=== PATIENT | male | born 1960 | race Caucasian/White ===

== ENCOUNTER 2018-07-21 05:39 | Emergency (ER) | payer OTHER, SELFPAY ==
[2018-07-21 05:50] VITALS: BP 164/93; PULSE 75; RESP 16; TEMP 37.1; O2SAT 99; BMI 26.3
--- NOTE | 2018-07-21 05:50 | ED_ITS ---
HPI - General Adult General Chief complaint: Nausea/Vomiting/Diarrhea Stated complaint: vomiting since wednesday Time Seen by Provider: 07/21/18 05:47 Source: patient Mode of arrival: ambulatory Limitations: no limitations History of Present Illness HPI narrative: Patient is a 57-year-old male here for evaluation of vomiting. He states it has been going on for the past several days. He states this happens when he takes anti-inflammatories and has been taking them for hip and back pain. He states that this has happened in the past. 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 He did take some of these over the past couple days without any improvement of his symptoms. He has no nausea medication at home. No fevers. He Related Data Previous Rx's Medication Instructions Recorded ondansetron HCl [Zofran] 4 mg PO Q6-8H PRN #14 tab 07/21/18 Allergies Allergy/AdvReac Type Severity Reaction Status Date / Time No Known Drug Allergies Allergy Verified 07/21/18 05:50 Review of Systems Constitutional Denies fever(s) and Denies headache(s) ENT Ears, Nose, Mouth, and Throat: Denies headache(s) Cardiovascular Denies chest pain and Denies dyspnea Respiratory Denies dyspnea Gastrointestinal Gastrointestinal: Reports abdominal pain, Denies change in stool character, Reports nausea and Reports vomiting Integumentary/Breasts Denies rash Neurologic Denies headache(s) Hematologic/Lymphatic Denies easy bleeding and Denies easy bruising [facility] Medical History Healthy adult (Acute) Social History Smoking Status: Never smoker Social History Smoking Status: Never smoker Exam Initial Vital Signs Initial Vital Signs: Vital Signs Temperature 98.8 F 07/21/18 05:50 Pulse Rate 75 07/21/18 05:50 Respiratory Rate 16 07/21/18 05:50 Blood Pressure 164/93 H 07/21/18 05:50 Pulse Oximetry 99 07/21/18 05:50 Const General: cooperative, healthy appearing, comfortable, well developed and well groomed Orientation: alert, awake and oriented x3 Resp Effort & Inspection: normal respiratory effort Auscultation: clear to auscultation bilaterally Cardio Rate: regular rate Rhythm: regular rhythm GI Inspection: non-distended Palpation: soft, No firm and tender (Epigastric area) Skin Lesions: no lesions Rashes: no rashes Neuro General: alert, awake and oriented x3 Cognition: normal cognition Extrem General: normal to inspection and capillary refill normal Course Orders Ordered: Discontinued Medications Ondansetron HCl (Zofran Odt) 4 mg SL NOW ONE Stop: 07/21/18 05:51 Last Admin: 07/21/18 05:58 Dose: Not Given Ondansetron HCl (Zofran Odt Prepack) 1 bottle MISC SEEINSTR ONE Stop: 07/21/18 05:57 Last Admin: 07/21/18 05:57 Dose: 1 bottle Vital Signs - 8 hr 07/21/18 05:50 Temperature 98.8 F Pulse Rate 75 Respiratory Rate 16 Blood Pressure 164/93 H Pulse Oximetry 99 Medical Decision Making MDM Narrative Medical decision making narrative: Patient states he feels much better after the Zofran. He is tolerating oral intake. We did discuss the importance of taking a reflux medication given the fact that he has a history of early Guallpa's and taking anti-inflammatories and all the vomiting he has been having. [place] ent expressed understanding and agreement this plan. Discharge Plan Departure Patient Disposition: Home Clinical Impression: Vomiting Qualifiers: Vomiting type: unspecified Vomiting Intractability: non-intractable Nausea presence: with nausea Qualified Code(s): R11.2 - Nausea with vomiting, unspecified Instructions: Nausea (Alternative Therapy), DI for Nausea -- Adult, DI for Vomiting -- Adult Activity Restrictions/Additional Instructions: I do recommend you start taking the Prilosec likely discussed. Take the Zofran as needed for nausea. Recommend a bland diet for the next day or so. You then can increase it is needed. Return to the emergency department for any new or worsening symptoms. Contact your primary care doctor for follow-up. Prescriptions: New ondansetron HCl [Zofran] 4 mg tablet 4 mg PO Q6-8H PRN (Reason: nausea and vomiting) Qty: 14 RF: 0
[2018-07-21] MEDS: ONDANSETRON 4 MG ODT PREPACK 1 BOTTLE MISC (05:57)
[2018-07-21 06:35] VITALS: BP 160/86; PULSE 59; RESP 16; O2SAT 98
== END 2018-07-21 06:35 | disposition home or self-care (01) ==
PROVIDERS: Emergency Provider Emergency Medicine
DX: R11.2 Nausea with vomiting, unspecified (principal)
CPT/HCPCS: 99282; 99283

== ENCOUNTER 2019-07-26 16:28 | Emergency (ER) | payer OTHER, SELFPAY ==
[2019-07-26 16:34] VITALS: BP 140/84; PULSE 92; RESP 19; TEMP 36.8; O2SAT 100; BMI 27.7
[2019-07-26 16:36] VITALS: BP 140/84; PULSE 88; RESP 14; TEMP 36.8; O2SAT 95
--- NOTE | 2019-07-26 16:36 | ED_ITS ---
HPI - Wound/Laceration <MARCELION Alcantara - Last Filed: 07/26/19 17:41> General Chief Complaint: Wound/Laceration Stated Complaint: laceration to right hand/thumb Time Seen by Provider: 07/26/19 16:36 Source: patient Mode of arrival: Ambulatory Limitations: no limitations History of Present Illness HPI narrative: This is a 58-year-old male, nonsmoker, who presents to ED with chief complain of laceration on dorsal aspect of base of right thumb by a chain saw 30 minutes before coming into ED at 4:00 p.m. Patient reports the chainsaw got stuck on a branch and he was attempting to clear this when he injured the thumb accidentally. The patient reports right dominant hand and had Td updated 6 months ago before traveling to [facility]. Patient reports he is able to move his thumb and has intact sensation. He denies taking anticoagulants or antiplatelets. Related Data Previous Rx's Medication Instructions Recorded ondansetron HCl [Zofran] 4 mg PO Q6-8H PRN #14 tab 07/21/18 Allergies Allergy/AdvReac Type Severity Reaction Status Date / Time No Known Drug Allergies Allergy Verified 07/21/18 05:50 Review of Systems <MARCELINO Alcantara - Last Filed: 07/26/19 17:41> Review of Systems Narrative: General: Denies fever, chills, fatigue, malaise, sweats. HEENT: Denies sinus pain, ear pain, sore throat, difficulty swallowing, dizziness. Respiratory: Denies dyspnea, cough, wheezing, hemoptysis, sputum. Cardiovascular: Denies chest pain, palpitations, orthopnea, edema. Gastrointestinal: Denies nausea, vomiting, abdominal pain, diarrhea, constipation, melena. : Denies dysuria, frequency, incontinence, hematuria, urinary retention. Musculoskeletal: See HPI Skin: HPI Neurologic: Denies weakness, headache, numbness, change in speech, confusion, seizures, incoordination. Psychiatric: No concerning psychosocial issues. 12-point review of systems is negative except for those stated above. Patient History <MARCELINO Alcantara - Last Filed: 07/26/19 17:41> Medical History GI bleed (Acute) Splenomegaly (Acute) Surgical History H/O eye surgery (Acute) H/O hemicolectomy (Acute) Social History Smoking Status: Never smoker Smoking Status: Never smoker alcohol intake frequency: 0-2 drinks per day Substance Use Type: does not use Exam <MARCELINO Alcantara - Last Filed: 07/26/19 17:41> Narrative Exam Narrative: General appearance: well developed, well nourished, in no acute distress. Head: normocephalic, atraumatic, no scalp lesions, non-tender. ENT: Hearing grossly intact. Nose without bleeding, purulent discharge. Mucous membrane moist, no mucosal lesion. Throat without erythema, tonsillar hypertrophy or exudate. Uvula in midline, airway patent. Neck/Thyroid: neck supple, full range of motion, no visible masses or meningeal signs. No JVD, non-tender without lymphadenopathy. Skin: 4 cm linear transverse laceration in dorsal aspect right thumb metacarpal without active bleeding. No suspicious rashes, lesions over other visible areas. Warm and dry and appropriate color for ethnicity. Heart: no clubbing, no cyanosis, no edema. S1 and S2 normal. RRR w/o murmurs, clicks, or bruits. Lungs: Breathing even and unlabored. No stridor. No accessory muscles used. Able to speak in full sentences. Chest: normal shape and expansion. Abdomen: non-obese, non-distended. Neurologic: alert and oriented. Cognitive exam, [employer] and PNS grossly intact on informal exam. Psych: good eye contact, normal affect. Initial Vital Signs Initial Vital Signs: Vital Signs Temperature 98.3 F 07/26/19 16:34 Pulse Rate 92 H 07/26/19 16:34 Respiratory Rate 19 07/26/19 16:34 Blood Pressure 140/84 07/26/19 16:34 Pulse Oximetry 100 07/26/19 16:34 Extrem Right upper extremity: hand Details: abnormal to inspection, normal capillary refill, neuromotor exam normal, neurosensory exam normal, tendon exam normal (Patient is able to flex and extend right thumb), tenderness Location: of the dorsal hand (Thumb) and vascular exam Details: radial pulse present and normal capillary refill <Aracelis North MD - Last Filed: 07/27/19 07:17> Initial Vital Signs Initial Vital Signs: Vital Signs Temperature 98.3 F 07/26/19 16:34 Pulse Rate 92 H 07/26/19 16:34 Respiratory Rate 19 07/26/19 16:34 Blood Pressure 140/84 07/26/19 16:34 Pulse Oximetry 100 07/26/19 16:34 Procedures <MARCELINO Alcantara - Last Filed: 07/26/19 17:41> Laceration Repair Laceration 1: Site: hand (dorsal aspect, metacarpal of thumb) Side (If applicable): right Size (cm): 4 Description: linear Depth: simple, single layer Local Anesthetic: lidocaine 1% and with bicarb Amount of anesthesia used (mL): 3 Pre-repair: wound explored and irrigated extensively Skin layer closed with: nylon Size (cm): 5-0 Number of sutures: 5 Technique: simple, interrupted Scores <MARCELINO Alcantara - Last Filed: 07/26/19 17:41> GCS Dillon coma scale eye opening: Spontaneous Sturtevant coma scale verbal response: Orientated Sturtevant coma scale motor response: Obey commands Dillon coma scale total score: 15 Course <MARCELINO Alcantara - Last Filed: 07/26/19 17:41> Orders Ordered: Discontinued Medications Bacitracin (Bacitracin) 1 applic TOP NOW ONE Stop: 07/26/19 16:42 Last Admin: 07/26/19 16:46 Dose: 1 applic Documented by: LG Lidocaine/Sodium Bicarbonate (Buffered Lidocaine 10 Ml Syr) 10 ml INJ NOW ONE Stop: 07/26/19 16:42 Last Admin: 07/26/19 16:45 Dose: 10 ml Documented by: LG Vital Signs Vital signs: Vital Signs - 8 hr 07/26/19 16:34 07/26/19 16:36 Temperature 98.3 F 98.3 F Pulse Rate 92 H 88 Respiratory Rate 19 14 Blood Pressure 140/84 Blood Pressure [Right Arm] 140/84 Pulse Oximetry 100 95 <Aracelis North MD - Last Filed: 07/27/19 07:17> Orders Ordered: Discontinued Medications Bacitracin (Bacitracin) 1 applic TOP NOW ONE Stop: 07/26/19 16:42 Last Admin: 07/26/19 16:46 Dose: 1 applic Documented by: LG Lidocaine/Sodium Bicarbonate (Buffered Lidocaine 10 Ml Syr) 10 ml INJ NOW ONE Stop: 07/26/19 16:42 Last Admin: 07/26/19 16:45 Dose: 10 ml Documented by: LG Vital Signs Vital signs: Vital Signs - 8 hr 07/26/19 16:34 07/26/19 16:36 Temperature 98.3 F 98.3 F Pulse Rate 92 H 88 Respiratory Rate 19 14 Blood Pressure 140/84 Blood Pressure [Right Arm] 140/84 Pulse Oximetry 100 95 MDM - Wound/Laceration <MARCELINO Alcantara - Last Filed: 07/26/19 17:41> Differential Diagnosis Differential diagnosis: Likely laceration Medical Records Attestation: I reviewed the patient's medical records. Imaging Data XR-Finger RT: Radiologist's Impression: [address] [address] XRay Report Signed Patient: Jac Morris JMR#: [id number] : 1960Acct:[id number] Age/Sex: 58 / MDate of Service: 07/26/19 Loc: ED Accession Number: [id number] Procedure: XR finger RT min 2V Ordering Provider: Giovani Jacobs PROCEDURE: XR FINGER RT MIN 2V INDICATIONS: Right Thumb metacarpal injury in dorsal aspect, chainsaw TECHNIQUE: AP hand, 2 views of the right finger(s) acquired. COMPARISON: None. FINDINGS: Bones: No fractures or dislocations. No suspicious bony lesions. First CMC and triscaphe joint degeneration Soft tissue laceration and swelling at the base of the thumb. Possible chronic occult osteophytes seen at the second and third metacarpal heads IMPRESSION: Soft tissue laceration and swelling. No fracture identified. No radiopaque foreign body seen. Incidentally noted chronic hooklike osteophytes at the second and third me tacarpal heads raises the possibility of deposition arthropathy Dictated by: Barrera Minor M.D. on 07/26/2019 at 16:54 Approved by: Barrera Minor M.D. on 07/26/2019 at 16:57 [facility] Narrative Medical decision making narrative: This is a 58-year-old male who presents to ED with right dorsal aspect laceration from a chain saw. Patient has intact sensation and is able to flex and extend affected finger without difficulty. X- ray test does not show fracture, dislocation or foreign body. Laceration has been repaired with sutures. Please see procedure note. I discussed wound care at home and return precautions and patient verbalized understanding and in agreement with treatment plan. Discharge Plan Departure Patient Disposition: Home Clinical Impression: Laceration Discharge Date/Time: 07/26/19 17:35 Instructions: DI for Laceration Repair Activity Restrictions/Additional Instructions: You have been diagnosed with [right base of thumb in dorsal aspect laceration from a chain saw. There is no dislocation, fracture or foreign body appreciated per x-ray test today. 4 cm laceration has been repaired with 5 sutures.]. What to do: *Take your medications as directed. You can use [id number] Neosporin on affected site. Please do not get your wound soaked in the water until suture removal. Keep your dressing intact for next 24 hrs. After then, you could remove your dressing, wash with soap and water. Pat dry with clean paper towel and dress it with antibiotic ointment. You can change dressing as needed and daily. Please monitor for signs and symptoms for infection such as increasing redness, swelling, warmth, pain, fever, purulent discharge. If this occurs, please return to ED or follow up with your primary care physician since your wound may be gotten infected. Please follow up with your primary care provider in 2-3 days for recheck wound. Your suture should be removed [7-10 ] days. This can be done by your primary provider, walk-in clinic or here in ED. Please keep your wound clean, dry and intact all times. *Return to ED if you have any new, worsening, or concerning symptoms, such as signs of infection as above. Prescriptions: No Action ondansetron HCl [Zofran] 4 mg tablet 4 mg PO Q6-8H PRN (Reason: nausea and vomiting) Qty: 14 RF: 0
--- NOTE | 2019-07-26 16:41 | DI.RAD.S_ITS ---
PROCEDURE: XR FINGER RT MIN 2V INDICATIONS: Right Thumb metacarpal injury in dorsal aspect, chainsaw TECHNIQUE: AP hand, 2 views of the right finger(s) acquired. COMPARISON: None. FINDINGS: Bones: No fractures or dislocations. No suspicious bony lesions. First CMC and triscaphe joint degeneration Soft tissue laceration and swelling at the base of the thumb. Possible chronic occult osteophytes seen at the second and third metacarpal heads IMPRESSION: Soft tissue laceration and swelling. No fracture identified. No radiopaque foreign body seen. Incidentally noted chronic hooklike osteophytes at the second and third metacarpal heads raises the possibility of deposition arthropathy Dictated by: Barrera Minor M.D. on 07/26/2019 at 16:54 Approved by: Barrera Minor M.D. on 07/26/2019 at 16:57
[2019-07-26] MEDS: LIDO 1%/SOD BICARB 8.4% (10ML) 10 ML SYRINGE INJ (16:45)
[2019-07-26] MEDS: BACITRACIN OINT 0.9 GM PCKT 1 APPLIC TOP (16:46)
[2019-07-26 17:33] VITALS: BP 137/85; PULSE 75; RESP 14; O2SAT 98
== END 2019-07-26 17:35 | disposition home or self-care (01) ==
PROVIDERS: Emergency Provider Nurse Practitioner Family
DX: S61.011A Laceration without foreign body of right thumb without damage to nail, initial encounter (principal); W29.3XXA Contact with powered garden and outdoor hand tools and machinery, initial encounter
CPT/HCPCS: 12002; 73140; 99283

== ENCOUNTER 2021-05-01 14:55 | Emergency (ER) | payer OTHER, SELFPAY ==
[2021-05-01 15:39] VITALS: BP 117/74; PULSE 57; RESP 15; TEMP 36.3; O2SAT 95; BMI 29.0
--- NOTE | 2021-05-01 15:43 | DI.RAD.S_ITS ---
PROCEDURE: XR SHOULDER RT MIN 2V INDICATIONS: fall with right upper arm and shoulder pain TECHNIQUE: 2 views of the shoulder were acquired. COMPARISON: None. FINDINGS: Bones: No fractures or dislocations. No suspicious bony lesions. Visualized ribs appear intact. Periarticular osteophyte formation at the acromioclavicular and glenohumeral joints, indicating osteoarthritis. Soft tissues: Calcifications project over the rotator cuff. IMPRESSION: 1. Osteoarthritis. 2. Calcific tendinitis. Dictated by: Jesse Barba M.D. on 05/01/2021 at 16:21 Approved by: Jesse Barba M.D. on 05/01/2021 at 16:22
--- NOTE | 2021-05-01 15:43 | DI.RAD.S_ITS ---
PROCEDURE: XR HUMERUS RT 2V INDICATIONS: fall with right upper arm and shoulder pain TECHNIQUE: 2 views of the humerus were acquired. COMPARISON: None. FINDINGS: Bones: No fractures or dislocations. No suspicious bony lesions. Soft tissues: No suspicious soft tissue calcifications. IMPRESSION: No acute fracture. No osseous lesion. If symptoms and/or clinical suspicion for pathology persist, further assessment with repeat, or advanced imaging (e.g., CT, MRI, or bone scan) may be helpful for further assessment. Dictated by: Jesse Barba M.D. on 05/01/2021 at 16:22 Approved by: Jesse Barba M.D. on 05/01/2021 at 16:23
--- NOTE | 2021-05-01 18:35 | ED.FALL ---
HPI - Fall <MARCELINO Munoz - Last Filed: 05/01/21 19:23> General Chief Complaint: Fall Stated Complaint: fall, rt shoulder and neck pain Time Seen by Provider: 05/01/21 18:35 Source: patient Mode of arrival: Ambulatory History of Present Illness HPI Narrative: 60-year-old male presents to the emergency department for right shoulder pain after he slipped and fell this morning without hitting his head and he does not take any blood thinners. Patient complains of pain with abduction and extension. Patient denies pain with his arm behind his back, is or straight down at his side, complains of a little bit of pain when his arm is hanging. Patient denies taking any medications for this today. He denies any numbness or tingling in his fingers, denies having any open wounds, range of motion is only limited due to pain. Related Data Previous Rx's Medication Instructions Recorded ondansetron HCl 4 mg tablet 4 mg PO Q6-8H PRN #14 tab 07/21/18 (Zofran) methocarbamol 500 mg tablet 500 mg PO Q8H PRN #14 tab 05/01/21 Allergies Allergy/AdvReac Type Severity Reaction Status Date / Time No Known Drug Allergies Allergy Verified 05/01/21 15:38 Review of Systems <MARCELINO Munoz - Last Filed: 05/01/21 19:23> Review of Systems Narrative: General: denies fever, chills Head/Neck: denies headache, neck pain Eyes: denies visual changes, eye pain Cardio: denies chest pain, palpitations Respiratory: denies shortness of breath, cough GI: denies abdominal pain : denies dysuria, hematuria MSK: denies joint pain, muscle weakness Skin: denies rash, itching Neuro: denies numbness, tingling Patient History <MARCELINO Munoz - Last Filed: 05/01/21 19:23> Medical History GI bleed Splenomegaly Surgical History H/O eye surgery H/O hemicolectomy Social History Smoking Status: Never smoker Smoking Status: Never smoker alcohol intake frequency: a few times a week Substance Use Type: does not use Exam <MARCELINO Munoz - Last Filed: 05/01/21 19:23> Narrative Exam Narrative: Independently reviewed vitals signs and nursing notes. General: Awake, alert, nontoxic, no cardiorespiratory distress Head/Neck: Atraumatic, neck full range of motion Eyes: EOMI, conjunctiva normal Nose: nares patent, no rhinorrhea Mouth/Throat: moist mucus membranes Cardio: Regular rate and rhythm, no peripheral edema Respiratory: respirations unlabored without wheezing, stridor, or rales. No retractions. MSK: Moves all extremities, neurovascularly intact, right arm with 2+ pulses radially, pain exacerbated with abduction and extension, patient complains of pain from the acromion process down the lateral aspect of his deltoid without any further radiation. He reports that it feels better at rest. Range of motion limited due to pain. Skin: Normal capillary refill, no rash Neuro: Normal speech and cognition, normal gait Initial Vital Signs Initial Vital Signs: Vital Signs Temperature 97.3 F L 05/01/21 15:39 Pulse Rate 57 L 05/01/21 15:39 Respiratory Rate 15 05/01/21 15:39 Blood Pressure 117/74 05/01/21 15:39 Pulse Oximetry 95 05/01/21 15:39 <Erendira Denny DO - Last Filed: 05/02/21 03:31> Initial Vital Signs Initial Vital Signs: Vital Signs Temperature 97.3 F L 05/01/21 15:39 Pulse Rate 57 L 05/01/21 15:39 Respiratory Rate 15 05/01/21 15:39 Blood Pressure 117/74 05/01/21 15:39 Pulse Oximetry 95 05/01/21 15:39 Course <MARCELINO Munoz - Last Filed: 05/01/21 19:23> Orders Ordered: Discontinued Medications Ketorolac Tromethamine (Ketorolac 30 Mg/Ml Vial) 30 mg IM NOW ONE Stop: 05/01/21 18:43 Last Admin: 05/01/21 18:45 Dose: 30 mg Documented by: JAMAR Vital Signs Vital signs: Vital Signs - 8 hr 05/01/21 19:34 Pulse Rate 80 Respiratory Rate 18 Blood Pressure 140/91 H Pulse Oximetry 97 <Erendira Denny DO - Last Filed: 05/02/21 03:31> Orders Ordered: Discontinued Medications Ketorolac Tromethamine (Ketorolac 30 Mg/Ml Vial) 30 mg IM NOW ONE Stop: 05/01/21 18:43 Last Admin: 05/01/21 18:45 Dose: 30 mg Documented by: KBROTEM Vital Signs Vital signs: Vital Signs - 8 hr 05/01/21 19:34 Pulse Rate 80 Respiratory Rate 18 Blood Pressure 140/91 H Pulse Oximetry 97 MDM - Fall <NAHEED MunozP - Last Filed: 05/01/21 19:23> Imaging Data Extremity x-ray #1: Radiologist's Impression: PROCEDURE:? XR HUMERUS RT 2V ? INDICATIONS:? fall with right upper arm and shoulder pain ? TECHNIQUE:? 2 views of the humerus were acquired.? ? COMPARISON:? None. ? FINDINGS:? ? Bones:? No fractures or dislocations.? No suspicious bony lesions.? ? Soft tissues:? No suspicious soft tissue calcifications.? ? IMPRESSION:? No acute fracture. No osseous lesion. If symptoms and/or clinical suspicion for pathology persist, further assessment with repeat, or advanced imaging (e.g., CT, MRI, or bone scan) may be helpful for further assessment. ? ? Dictated by: Jesse Barba M.D. on 05/01/2021 at 16:22 ? ? Approved by: Jesse Barba M.D. on 05/01/2021 at 16:23 ? Extremity x-ray #2: Radiologist's Impression: PROCEDURE:? XR SHOULDER RT MIN 2V ? INDICATIONS:? fall with right upper arm and shoulder pain ? TECHNIQUE:? 2 views of the shoulder were acquired.? ? COMPARISON:? None. ? FINDINGS:? ? Bones:? No fractures or dislocations.? No suspicious bony lesions.? Visualized ribs appear intact.? Periarticular osteophyte formation at the acromioclavicular and glenohumeral joints, indicating osteoarthritis. ? Soft tissues:? Calcifications project over the rotator cuff. ? IMPRESSION:? 1. Osteoarthritis. 2. Calcific tendinitis. ? ? Dictated by: Jesse Barba M.D. on 05/01/2021 at 16:21 ? ? Approved by: Jesse Barba M.D. on 05/01/2021 at 16:22 ? [facility] Narrative Medical decision making narrative: 60-year-old male presents to the emergency department for right shoulder pain after slipping and falling this morning. Right shoulder and right humerus x-rays were negative for causes abnormality, joint effusion, or other acute abnormal process. Patient was fitted in a sling, given Toradol and muscle relaxers the reports that it feels better in a sling. He will follow-up with his primary care provider for physical therapy, if this is unsuccessful he will follow-up with orthopedics for a possible rotator cuff injury. Patient is appropriate and amenable to discharge home. Vital signs are stable on repeat examination is unremarkable. Patient has been informed of results. Patient has been given strict return to ER precautions for any new or worsening symptoms. Patient understands to follow up closely with outpatient providers as instructed. Patient understands plan and agrees to discharge home. All questions and concerns answered at this time. Discharge Plan Departure Patient Disposition: Home Clinical Impression: Sprain of right shoulder Qualifiers: Encounter type: initial encounter Shoulder sprain type: unspecified sprain Qualified Code(s): S43.401A - Unspecified sprain of right shoulder joint, initial encounter Instructions: DI for Shoulder Sprain, DI for Shoulder Pain Activity Restrictions/Additional Instructions: *You have been diagnosed with a right shoulder injury, most likely a sprain, but could be a rotator cuff injury. Please follow-up with your primary care provider to get a referral for physical therapy. Please wear the sling most of the time all your out of bed and walking around, it may help with the hanging pain. Please take it out of the sling and do gentle range of motion multiple times a day so you do not get a frozen shoulder. Please take anti-inflammatories like Aleve, Advil, ibuprofen, or Motrin every 6 hours as needed for your pain with food and water. Please take the Robaxin as needed for muscle spasms. Follow-up with Orthopedics Dr. Ahumada if this is not improving after a couple weeks and if you have tried physical therapy. I hope you feel better soon, your x-ray was negative for any fracture. *What to do: *Please continue to take your regular medications as directed. [x ] New medication prescriptions sent to your pharmacy: [[facility] ] [ ] New medication written as a paper prescription [ ] No new medications given *Please follow up with your primary care provider in 2-3 days, call for an appointment. Let them know you were seen in the Emergency Department and that we ask that you be seen in follow up. We will electronically transmit a record of today's note if your PCP is in our system *If you do not have a primary care provider please contact [facility] Resource line at [phone]. They will ask some questions about your medical history and help get you set up with a doctor in the community. *Return to Emergency Department if you should have any new, worsening or concerning symptoms, such as [fever greater than 101F, chills, worsening pain, persistent vomiting or other bothersome symptoms] Prescriptions: New methocarbamol 500 mg tablet 500 mg PO Q8H PRN (Reason: muscle spasm) Qty: 14 0RF No Action ondansetron HCl [Zofran] 4 mg tablet 4 mg PO Q6-8H PRN (Reason: nausea and vomiting) Qty: 14 0RF Rx Instructions: take PRN for nausea associated with GI discomfort. Pt stated that he is in the process of ruling out amadou's esophagus or polycythemia realted to an enlarged spleen. Zofran was last taken a month ago Referrals: Wendy Ahumada MD [Physician] - 10-14 days (if not improving) <Erendira Denny DO - Last Filed: 05/02/21 03:31> [facility] ED Attending Meganature Attestation: I was immediately available in the department for consultation. Documentation has been reviewed. I agree with assessment and plan.
[2021-05-01] MEDS: KETOROLAC 30 MG/ML VIAL IM (18:45)
[2021-05-01 19:34] VITALS: BP 140/91; PULSE 80; RESP 18; O2SAT 97
== END 2021-05-01 19:34 | disposition home or self-care (01) ==
PROVIDERS: Emergency Provider Nurse Practitioner Critical Care Medicine
DX: S43.401A Unspecified sprain of right shoulder joint, initial encounter (principal); W01.0XXA Fall on same level from slipping, tripping and stumbling without subsequent striking against object, initial encounter
CPT/HCPCS: 73030; 73060; 96372; 99283; J1885